=== PATIENT | female | born 1990 | race Caucasian/White ===

== ENCOUNTER 2017-03-06 10:03 | Emergency (ER) | payer MEDICAID ==
[~2017-03-06] VITALS: Ht 157.5 cm; Wt 56.7 kg
[~2017-03-06 10:03] MED LIST: ABILIFY2 MG; AMOXICOT500 MG PO; CITALOPRAM HYDR20 MG PO; FERROUS SULFAT200 M1 PO; FLAGYL500 M1 PO; MAKENA250 MG/ML IM; MOTRIN 400MG.400 MG PO; NICOTINE T21 MG/24 H TD; NITROFURANTOIN100 M2 PO; PNV PRENATAL PL1 TAB PO; PRENATAL PLUS1 TA1 PO
--- OUTSIDE RECORDS SUMMARY | 2017-03-06 10:15 | External Medical Summary Rpt ---
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 SERVICE SERVICE STATUTE MILE OBSERVATI 97237 [facility] CARMEN ON/INPATI 5 PHYSICIAN OSITO ENT S GROUP HOSPITAL CARE 50 [place] [address] JAVIER HERRERA INFUSION 5 [facility] THERAPY/P INC INC ROPHYLAXI S /DX 1ST TO 1 HR EVAL C/V 06209 JAVIER HERRERA AMNIOTIC 5 [facility] FLUID INC INC PROTEIN QUAL EA SPECIMEN 61374 [facility] MORALES NONSTRESS 5 PHYSICIAN OSITO TEST S GROUP 41135 [facility] MORALES NONSTRESS 5 PHYSICIAN OSITO TEST S GROUP THERAPEUT 61679 J[facility]ERR[facility]A IC 5 [facility] PROPHYLAC INC INC TIC/DX INJECTION SUBQ/IM THERAPEUT 46111 J[facility] HERRER[facility] IC 5 [facility] PROPHYLAC INC INC TIC/DX INJECTION SUBQ/IM FTL 44981 JAVIER HERRER[facility] FIBRONECT 5 [facility] IN INC INC CERVICOVA G SECRETION S SEMI-LISET GLUCOSE 84097 JAVIER HERRERA TOLERANCE 5 [facility] TEST GTT INC INC 3 SPECIMENS URNLS DIP 10107 [facility]ERR[facility] 5 [facility] STICK/TAB INC INC LET RGNT NON-AUTO W/O MICRSCP COLLECTIO 58818 JAVIER HERRER[facility] N VENOUS 5 [facility] BLOOD INC INC VENIPUNCT URE GLUCOSE 14999 JAVIER HERRERA TOLERANCE 5 [facility] EA ADDL INC INC BEYOND 3 SPECIMENS GLUCOSE 83149 [facility] POST 5 PHYSICIAN PHYSICIAN GLUCOSE S GROUP S GROUP DOSE US PREG 16737 [facility] MORALES UTERUS 5 PHYSICIAN OSITO AFTER 1ST S GROUP TRIMEST GESTATION DRUG SCR G0434 [facility] MORALES NOT 5 PHYSICIAN OSITO CHROMATOG S GROUP RAPHIC; ANY NUMBER PT ENC CYTP C/V 76372 [facility] AUTO THIN 5 LLC [employer] LYR PREPJ SCR MNL RESCR PHYS US PREG 71857 [facility] UTERUS 5 [facility] REAL TIME HEALTH W/IMAGE PLLC DCMTN TRANSVAG INF AGT G0432 [facility] AB DETECT 5 [facility] EIA TECH [facility]OSP HOSP HIV-1&/HI V-2 SCR URNLS DIP 25612 [facility] 5 [facility] STICK/TAB HOSP HOSP LET RGNT AUTO W/[place] [address] [facility] THYROID 5 [facility] STIMULATI [facility]P HOSP NG HORMONE TSH GLUCOSE 74203 [facility] QUANTITAT 5 [facility] BLOOD [facility] HOSP XCPT REAGENT STRIP GONADOTRO 69959 [facility] PIN 5 [facility] CHORIONIC [facility] HOSP QUANTITAT DEDRICK CREATININ 68010 [facility] E BLOOD 5 [facility] URINE 18132 [facility]TH DEPT VISUAL KATE KATE COLOR CMPRSN METHS IAADIADOO 39716 [facility] TRA 4 HEALTH INFLUENZA [facility]ICAL GROUP SBSQ 23736 [facility] 3 CARE/DAY 35 MINUTES VAGINAL 28566 MODE RICHARDSO DELIVERY 3 N SANDIE N SANDIE ONLY NEURAXIAL 39478 WHITE CHR WHITE CHR LABOR 3 ANALG/ANE S PLND VAGINAL DELIVERY OTHER 7359 [facility] MANUALLY 3 [facility] DELIVERY 77443 MODE MOLINASO NONSTRESS 3 N SANDIE N SANDIE TEST THERAPEUT 88531 JAVIER HERRERA IC 3 [facility] PROPHYLAC INC INC TIC/DX INJECTION SUBQ/IM FTL 28400 JAVIER HERRERA FIBRONECT 3 [facility] IN INC INC CERVICOVA G SECRETION S SEMI-LISET 77169 [facility] HARPEL NONSTRESS 3 ABBY ABBY TEST US PREG 08304 CARMEN MORALES UTERUS 3 OSITO OSITO AFTER 1ST TRIMEST GESTATION IADNA 87707 BENSON BENSON NEISSERIA 3 MIGUEL MIGUEL GONORRHOE AE AMPLIFIED PROBE TQ IADNA 55673 BENSON BENSON CHLAMYDIA 3 MIGUEL MIGUEL TRACHOMAT IS AMPLIFIED PROBE TQ CYTP C/V 85279 BEN[facility] BENSON AUTO THIN 3 MIGUEL MIGUEL LYR PREPJ SCR MNL RESCR PHYS CYTP 22544 [facility] BENSON CERVICAL/ 3 MIGUEL MIGUEL VAGINAL REQ INTERP PHYSICIAN URINE 93046 [facility] CHUNG 2 [facility] HEALTH TEST DEPT DEPT VISUAL COLOR CMPRSN METHS THERAPEUT 12303 AHSAN MINER, IC 0 [facility] PROPHYLAC PSC TIC/DX INJECTION SUBQ/IM INJECTION J1885 A[facility]AN MINER, 0 [facility] KETOROLAC PSC TROMETHAM INE PER 15 MG INJECTION J1885 AHSAN MINER, 0 [facility] KETOROLAC PSC TROMETHAM INE PER 15 MG INJECTION J0696 AHSAN MINER, 0 [facility] CEFTRIAXO PSC NE SODIUM PER 250 MG THERAPEUT 67910 AHSAN MINER, IC 0 [facility] PROPHYLAC PSC TIC/DX INJECTION SUBQ/[place] [address] PATHOLOGY PATHOLOGY SURG 9 & & PATHOLOGY CYTOLOGY CYTOLOGY LAB LAB GROSS&KYRA ROSCOPIC EXAM COLPOSCOP 82201 [facility] MORALES, Y CERVIX 9 [facility] CERVIX CLINIC OF & ENDOCRV [place] CURRETAGE PLLC CYTP 62927 PATHOLOGY PATHOLOGY CERVICAL/ 9 & & VAGINAL CYTOLOGY CYTOLOGY REQ LAB LAB INTERP PHYSICIAN CYTP C/V 44904 PATHOLOGY PATHOLOGY AUTO THIN 9 & & LYR CYTOLOGY CYTOLOGY PREPJ SCR LAB LAB MNL RESCR PHYS IIV3 66738 DHS/CO CHUNG VACCINE 9 [facility] CENTRAL DEPT VIRUS 0.5 BANK ACCT ML DOSAGE IM USE HOSPITAL 60275 FAMILY MULBERRY, DISCHARGE 9 CARE DAGOBERTO T DAY ASSOCIATE MANAGEMEN S T 30 MIN/< SUBQ [address] [facility] 9 CARE DAGOBERTO T CARE PER ASSOCIATE DAY E/M S NORMAL CIRCUMCIS 34563 [facility] 9 CARE DAGOBERTO T W/CLAMP/O ASSOCIATE TH DEV S W/BLOCK VAGINAL 02148 [facility] MORAL[facility], DELIVERY 9 HEALTH BO J ONLY CLINIC OF W/POSTPAR RACHEL [facility] 1ST 57971 [facility] 9 CARE DAGOBERTO Riley GERRY [facility] CENTER S CARE PER DAY NML NB NEURAXIAL 98690 [facility], LABOR 9 ANESTH SIL F ANALG/ANE OF THE S PLND BLUEGRASS VAGINAL DELIVERY OTHER 7279 JAVIER HERRERA VACUUM 9 [facility] EXTRACTIO INC INC N REPAIR OF 7569 JAVIER HERRERA OTHER 9 [facility] CURRENT INC INC OBSTETRIC LACERATIO N 93504 SHAYY CAIN, CONTRACTI 9 VINAYL MD SHAYY Quinonez ON STRESS TEST 55312 WOMEN'S MORALES, NONSTRESS 9 [facility] J TEST CLINIC OF [facility] CUL BACT 54196 COMBINED COMBINED XCPT 9 PHYSICIAN PHYSICIAN URINE S LAB S LAB BLOOD/STO OL AEROBIC ISOL DOPPLER 15981 [facility], VELOCIMET 9 [facility] J RY CLINIC OF UMBILICAL ARTERY [place] [facility] US PREG 32909 [facility]OMEN'S MORALES, UTERUS 9 [facility] J REAL TIME CLINIC OF F/U TRNSABDL [place] PER FETUS [facility] 96539 [facility]OMEN'S MORALES, BIOPHYSIC 9 [facility] AL CLINIC OF PROFILE W/O [place] NON-STRES [facility] S TESTING CYTP 92534 [facility], CERV/VAG 8 [place] INC DAGOBERTO D AUTO THIN LAYER PREP MNL SCREEN CYTP 14925 [facility], CERVICAL/ 8 [place] DAG[place]ERT[place] Minaya VAGINAL REQ INTERP PHYSICIAN IV NFUS 59047 J[facility]IER HERRERA THER 8 [facility] PROPH/DX INC INC EA HR BLOOD 00221 J[facility] HERRER[facility] TYPING 8 [facility] SEROLOGIC INC INC RH ([place]) [place] [address] WOMEN'S AMAYA, 8 [facility] UTERUS 14 CLINIC OF WK TRANSABDL [place] [facility] GESTAT ANTIBODY 14988 JAVIER HERRERA SCREEN 8 [facility] RBC EACH INC INC SERUM TECHNIQUE BLOOD 57532 JAVIER HERRERA COUNT 8 [facility] COMPLETE INC INC AUTO&AUTO DIFRNTL WBC BLOOD 02526 J[facility]IER HERRERA TYPING 8 [facility] SEROLOGIC INC INC ABO [place] MISSED 70077 [facility]S AMAYA, 8 [facility] [place] [facility] [place] [address] PATHOLOGY PATHOLOGY SURG 8 & & PATHOLOGY CYTOLOGY CYTOLOGY LAB LAB GROSS&KYRA ROSCOPIC EXAM DILATION& 6902 JAVIER HERRERA CURETTAGE 8 [facility] INC INC FOLLOWING DELIVERY/ ANESTHESI 69493 [facility] Victor Hugo NORIEGA ANESTH SIL ALBERT OF THE E/MISSED [facility] [place] [address]34 JAVIER HERRERA THER 8 [facility] HOSP PROPH/DX INC INC 1ST >1 HR US PREG 79148 [facility]OMEN'S MORALES, UTERUS 8 [facility] REAL TIME CLINIC OF W/IMAGE DCMTN [place] TRANSVAG [facility] US PREG 62631 WOMEN'S MORALES, UTERUS 8 [facility] REAL TIME CLINIC OF W/IMAGE DCMTN [place] TRANSVAG [facility] MOLEC 26588 [facility], SEP&ID HI 8 [place] [facility] Rei RESOLU TQ EACH NUCLEIC ACID PREP IADNA 80529 [facility], NEISSERIA 8 [place] [facility] Rei GONORRHOE AE AMPLIFIED PROBE TQ IADNA 73935 [facility], CHLAMYDIA 8 [place] [facility] D[facility] Rei TRACHOMAT IS AMPLIFIED PROBE TQ MOLECULAR 22050 [facility], 8 [place] D[place] Minaya DIAGNOSTI CS INTERPRET ATION & REPORT MUTATION 94155 [facility], ID 8 [place] D[place] Minaya ENZYMATIC LIG/PRIME R XTN 1 SGM EA CYTP 73118 [facility], CERV/VAG 8 [place] DAGOBERT[place] D AUTO THIN LAYER PREP MNL SCREEN CYTP 16258 [facility], CERVICAL/ 8 [place] DAG[place]ERT[place] D VAGINAL REQ INTERP PHYSICIAN ECG 71329 CARDIOLOG ALEMAN, ROUTINE 8 Y LEOBARDO A ECG ASSOCIATE W/LEAST S OF 12 [facility] I&R ONLY Encounters Encounter Start End Date Code Location Performer Type Date EMERGENCY 51152 [facility] 7 7 [facility] T VISIT LOW/MODER SEVERITY HOSPITAL JAVIER - 7 7 [facility] OFF[facility] 24119 [facility] LEYDA OUTPATIEN 6 6 PHYSICIAN T VISIT S GROUP 15 MINUTES OFFICE 95394 [facility] MORALES OUTPATIEN 6 6 PHYSICIAN OSITO T VISIT S GROUP 15 MINUTES OFFICE 51912 [facility] OUTPATIEN 6 6 HEALTH HEN T VISIT MEDICAL 15 GROUP MINUTES HOSPITAL JAVIER - 6 6 [facility] - 6 6 [facility] OFF[facility] 79482 [facility] MORALES OUTPATIEN 6 6 PHYSICIAN OSITO T VISIT S GROUP 15 MINUTES OFFICE 74549 [facility] HARPEL OUTPATIEN 6 6 PHYSICIAN ABBY T VISIT S GROUP 25 MINUTES OFFICE 15251 [facility] MORALES OUTPATIEN 6 6 PHYSICIAN OSITO T VISIT S GROUP 15 MINUTES OFFICE 27859 [facility] MORALES OUTPATIEN 6 6 PHYSICIAN OSITO T VISIT S GROUP 15 MINUTES OFFICE 44763 [facility] MORALES OUTPATIEN 6 6 PHYSICIAN OSITO T VISIT S GROUP 15 MINUTES HOSPITAL JAVIER - 6 6 [facility] 6 MEDICAL ARMAND T VISIT SERV 15 FOUNDATIO MINUTES N OFFICE 80523 UNIVERSIT OUTPATIEN 6 6 Y T VISIT 5 HOSPITAL MINUTES [facility] JAVIER - 6 6 [facility] OUTPATIEN [facility] T OFFICE 21337 [facility] MORALES OUTPATIEN 6 6 PHYSICIAN OSITO T VISIT S GROUP 15 MINUTES HOSPITAL JAVIER - 6 6 [facility]PATIEN [facility] T [facility] JAVIER - 6 6 [facility] OUTPATIEN [facility] T OFFICE 61049 [facility] MORALES OUTPATIEN 6 6 PHYSICIAN OSITO T VISIT S GROUP 15 MINUTES OFFICE 65698 [facility] MORALES OUTPATIEN 6 6 PHYSICIAN OSITO T VISIT S GROUP 15 MINUTES OFFICE 81802 [facility] MORALES OUTPATIEN 6 6 PHYSICIAN OSITO T VISIT S GROUP 15 MINUTES OFFICE 63271 [facility] MORALES OUTPATIEN 6 6 PHYSICIAN T VISIT S GROUP 15 MINUTES OFFICE 97998 [facility] MORALES OUTPATIEN 6 6 PHYSICIAN T VISIT S GROUP 15 MINUTES OFFICE 55698 [facility] MORALES OUTPATIEN 6 6 PHYSICIAN T VISIT S GROUP 15 MINUTES HOSPITAL JAVIER - 6 6 [facility]EN [facility] T OFFICE 62058 [facility] MORALES OUTPATIEN 6 6 PHYSICIAN T VISIT S GROUP 15 MINUTES OFFICE 42385 [facility] MORALES OUTPATIEN 6 6 PHYSICIAN T VISIT S GROUP 25 MINUTES HOSPITAL JAVIER - 6 6 [facility] OUTPATIEN INC T EMERGENCY 98036 JAVIER 6 [address] [facility] INC T VISIT LOW/MODER SEVERITY OFFICE 37949 JAVIER SHOSHANA OUTPATIEN 5 5 [facility] T VISIT HOSPITAL 15 MINUTES OFFICE 95418 JAVIER SHOSHANA OUTPATIEN 5 5 [facility] T VISIT [facility] 15 MINUTES HOSPITAL UNIVERSIT - 5 5 [facility] JAVIER - 5 5 [facility] OUTPATIEN INC [facility] JAVIER - 5 5 [facility] OUTPATIEN INC [facility] JAVIER - 5 5 [facility] OUTPATIEN INC [facility] JAVIER - 5 5 [facility] OUTPATIEN [facility] OFFICE 77016 [facility] MORALES OUTPATIEN 5 5 PHYSICIAN OSITO T VISIT S GROUP 15 MINUTES OFFICE 67258 [facility] MORALES OUTPATIEN 5 5 PHYSICIAN OSITO T VISIT S GROUP 15 MINUTES OFFICE 60277 [facility] MORALES OUTPATIEN 5 5 PHYSICIAN OSITO T VISIT S GROUP 25 MINUTES OFFICE 92829 [facility] [facility] OUTPATIEN 5 5 [facility] T VISIT HEALTH 15 PLLC MINUTES [facility] CENTRAL - 5 5 [facility] OUT[facility]OSP T OFFICE 58655 [facility] OUTPATIEN 5 5 [facility] T NEW 30 HEALTH MINUTES PLLC OFFICE 03711 [facility] DEPT HLTH DEPT 10 KATE KATE MINUTES OFFICE 00995 [facility] TRA OUTPATIEN 4 4 HEALTH T VISIT MEDICAL 15 GROUP MINUTES OFFICE 71358 [facility] RAMIREZ OUTPATIEN 4 4 HEALTH DON T NEW 30 MEDICAL MINUTES GROUP OFFICE 77378 [facility] LEYDA OUTPATIEN 4 4 PHYSICIAN KYRA T VISIT S GROUP 15 MINUTES [facility] HINDU - 3 3 [facility] JAVIER - 3 3 [facility] OUTPATIEN INC T HOSPITAL JAVIER - 3 3 [facility] OUTPATIEN INC T OFFICE 75767 ANT CAIN OUTPATIEN 3 3 ABBY ABBY T VISIT 15 MINUTES OFFICE 85113 [facility] HAINESS OUTPATIEN 2 2 [facility] T NEW 20 DEPT DEPT MINUTES OFFICE 59980 AHSAN MINER OUTPATIEN 0 0 CLIN[facility] T VISIT PSC 15 MINUTES EMERGENCY 76877 CHUNG 0 0 [facility] T VISIT LOW/MODER SEVERITY HOSPITAL CHUNG - 0 0 [facility] T EMERGENCY 94713 CHUNG CELIA, 0 0 [facility] T VISIT LIMITED/M INOR PROB OFFICE 79660 AHSAN MINER OUTPATIEN 0 0 CLINIC [facility] T VISIT PSC 15 MINUTES OFFICE 52847 [facility], OUTPATIEN 0 0 HEALTH BO J T VISIT CLINIC OF 15 MINUTES [facility] OFFICE 37036 [facility]OMEN'S MORALES, OUTPATIEN 9 9 HEALTH BO J T VISIT CLINIC OF 25 MINUTES [facility] OFFICE 30866 WOMEN'S MORALES, OUTPATIEN 9 9 HEALTH BO J T VISIT CLINIC OF 15 MINUTES [facility] JAVIER - 9 9 [facility] INPATIENT INC OFFICE 44765 SHAYY CAIN OUTPATIEN 9 9 ATN Quinonez T VISIT 15 MINUTES OFFICE 56081 [facility]AL[facility], OUTPATIEN 9 9 HEALTH BO J T VISIT CLINIC OF 15 MINUTES [facility] OFFICE 22516 WOMEN'S MORALES, OUTPATIEN 9 9 HEALTH BO J T VISIT CLINIC OF 15 MINUTES [facility] OFFICE 89235 WOMEN'S CARMEN OUTPATIEN [address] [facility] BO [facility] VISIT CLINIC OF 15 MINUTES [facility] OFFICE 11534 WOMEN'S AMAYA, OUTPATIEN 8 8 [facility] VISIT CLINIC OF 15 MINUTES [facility] OFFICE 00881 [facility] AMAYA OUTPATIEN 8 8 [facility] VISIT CLINIC OF 15 MINUTES [facility] JAVIER - 8 8 [facility] OUTPATIEN [facility] OFFICE 55111 HERBERT NICHOLS 8 8 CLINIC MIC[facility] T VISIT PSC 15 MINUTES OFFICE 09061 HERBERT NICHOLS 8 8 CLINIC MIC[facility] T VISIT PSC 15 MINUTES OFFICE 07141 HERBERT NICHOLS 8 8 CLINIC [facility]HA[facility] T VISIT PSC 15 MINUTES
--- OUTSIDE RECORDS SUMMARY | 2017-03-06 10:15 | External Medical Summary Rpt ---
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 MIGUEL MIGUEL LYR PREPJ SCR MNL RESCR PHYS CYTP 33517 BENSON BENSON CERVICAL/ 3 MIGUEL MIGUEL VAGINAL REQ INTERP PHYSICIAN URINE 56585 CHUNG CHUNG 2 [facility] TEST DEPT DEPT VISUAL COLOR CMPRSN METHS THERAPEUT 04425 AHSAN MINER, IC 0 [facility] PROPHYLAC PSC TIC/DX INJECTION SUBQ/IM INJECTION J1885 AHSAN MINER, 0 [facility] KETOROLAC PSC TROMETHAM INE PER 15 MG INJECTION J1885 AHSAN MINER, 0 [facility] KETOROLAC PSC TROMETHAM INE PER 15 MG INJECTION J0696 AHSAN MINER, 0 [facility] CEFTRIAXO PSC NE SODIUM PER 250 MG THERAPEUT 25292 AHSAN MINER, IC 0 [facility] PROPHYLAC PSC TIC/DX INJECTION SUBQ/[place] [address] PATHOLOGY PATHOLOGY SURG 9 & & PATHOLOGY CYTOLOGY CYTOLOGY LAB LAB GROSS&KYRA ROSCOPIC EXAM COLPOSCOP 26213 [facility]OMEN'S MORAELS, Y CERVIX 9 [facility] J BX CERVIX CLINIC OF & ENDOCRV [place] [facility] CYTP 50778 PATHOLOGY PATHOLOGY CERVICAL/ 9 & & VAGINAL CYTOLOGY CYTOLOGY REQ LAB LAB INTERP PHYSICIAN CYTP C/V 90699 PATHOLOGY PATHOLOGY AUTO THIN 9 & & LYR CYTOLOGY CYTOLOGY PREPJ SCR LAB LAB MNL RESCR PHYS IIV3 46544 DHS/CO CHUNG VACCINE 9 [facility] CENTRAL DEPT VIRUS 0.5 BANK ACCT ML DOSAGE IM USE HOSPITAL 14663 FAMILY MULBERRY, DISCHARGE 9 CARE DAGOBERTO T DAY ASSOCIATE MANAGEMEN S T 30 MIN/< SUBQ 31509 [facility] 9 CARE DAGOBERTO T CARE PER ASSOCIATE DAY E/M S NORMAL CIRCUMCIS 38778 [facility] 9 CARE DAGOBERTO T W/CLAMP/O ASSOCIATE TH DEV S W/BLOCK VAGINAL 41070 [facility] MORALES, DELIVERY 9 HEALTH BO J ONLY CLINIC OF W/POSTPAR [facility]HEL [facility] 1ST 32766 [facility] 9 CARE DAGOBERTO Riley [facility] S CARE PER DAY NML NB NEURAXIAL 81551 [facility], LABOR 9 ANESTH SIL F ANALG/ANE OF THE S PLND BLUEGRASS VAGINAL DELIVERY OTHER 7279 JAVIER HERRERA VACUUM 9 [facility] EXTRACTIO INC INC N REPAIR OF 7569 JAVIER HERRERA OTHER 9 [facility] CURRENT INC INC OBSTETRIC LACERATIO N 62106 SHAYY CAIN, CONTRACTI 9 VINAYL MD SHAYY Quinonez ON STRESS TEST 74366 WOMEN'S MORALES, NONSTRESS 9 [facility] J TEST [facility] CUL BACT 07342 COMBINED COMBINED XCPT 9 PHYSICIAN PHYSICIAN URINE S LAB S LAB BLOOD/STO OL AEROBIC ISOL DOPPLER 39130 [facility] M[facility]AL[facility], VELOCIMET 9 [facility] J RY CLINIC OF UMBILICAL ARTERY [place] [facility] US PREG 82783 [facility]OMEN'S MORALES, UTERUS 9 [facility] J REAL TIME CLINIC OF F/U TRNSABDL [place] PER FETUS [facility] 17686 WOMEN'S MORALES, BIOPHYSIC 9 [facility] J AL CLINIC OF PROFILE W/O [place] NON-STRES [facility] S TESTING CYTP 97295 [facility], CERV/VAG 8 [place] INC DAGOBERTO D AUTO THIN LAYER PREP MNL SCREEN CYTP 72915 [facility], CERVICAL/ 8 [place] INC DAGOBERTO Minaya VAGINAL REQ INTERP PHYSICIAN IV NFUS 94252 J[facility]IER HERRERA THER 8 [facility] PROPH/DX INC INC EA HR BLOOD 16290 J[facility]IER HERRERA TYPING 8 [facility] SEROLOGIC INC [place] RH ([place]) [place] [address] [facility]OM[facility]'S AMAYA, 8 [facility] UTERUS 14 CLINIC OF WK TRANSABDL [place] [facility] GESTAT ANTIBODY 77105 JAVIER HERRERA SCREEN 8 [facility] RBC EACH INC INC SERUM TECHNIQUE BLOOD 28451 JAVIER HERRERA COUNT 8 [facility] COMPLETE INC INC AUTO&AUTO DIFRNTL WBC BLOOD 28689 JAVIER HERRERA TYPING 8 [facility] SEROLOGIC INC INC ABO [place] MISSED 99545 [facility] AMAYA, 8 [facility] [place] [address] PATHOLOGY PATHOLOGY SURG 8 & & PATHOLOGY CYTOLOGY CYTOLOGY LAB LAB GROSS&KYRA ROSCOPIC EXAM DILATION& 6902 JAVIER HERRERA CURETTAGE 8 [facility] H[facility] INC INC FOLLOWING DELIVERY/ ANESTHESI 89716 [facility] Victor Hugo NORIEGA ANESTH SIL ALBERT OF THE E/MISSED [facility] [place] [address] JAVIER HERRERA THER 8 MEM [facility] HOSP PROPH/DX INC INC 1ST >1 HR [place] PREG 50744 WOMEN'S MORALES, UTERUS 8 [facility] OF W/IMAGE DCMTN [place] TRANSVAG [facility] US PREG 72966 WOMEN'S MORALES, UTERUS 8 [facility] OF W/IMAGE DCMTN [place] TRANSVAG [facility] MOLEC 60484 [facility], SEP&ID HI 8 [place] D[facility] Rei RESOLU TQ EACH NUCLEIC ACID PREP IADNA 71046 [facility], NEISSERIA 8 [place] [facility] D[facility] Rei GONORRHOE AE AMPLIFIED PROBE TQ IADNA 71314 [facility], CHLAMYDIA 8 [place] DAG[facility] Rei TRACHOMAT IS AMPLIFIED PROBE TQ MOLECULAR 34484 [facility], 8 [place] DAG[place] Minaya DIAGNOSTI CS INTERPRET ATION & REPORT MUTATION 58714 [facility], ID 8 [place] [facility] DAG[facility]ERT[place] Minaya ENZYMATIC LIG/PRIME R XTN 1 SGM EA CYTP 04160 [facility], CERV/VAG 8 [place] INC DAGOBERT[place] D AUTO THIN LAYER PREP MNL SCREEN CYTP 21073 [facility], CERVICAL/ 8 [place] INC DAGOBERT[place] D VAGINAL REQ INTERP PHYSICIAN ECG 12926 CARDIOLOG ALEMAN, ROUTINE 8 Y LEOBARDO A ECG ASSOCIATE W/LEAST S OF 12 [facility] I&R ONLY Encounters Encounter Start End Date Code Location Performer Type Date EMERGENCY 42035 J[facility]IER 7 7 [facility] T VISIT LOW/MODER SEVERITY HOSPITAL JAVIER - 7 7 [facility] 09738 [facility] LEYDA OUTPATIEN 6 6 PHYSICIAN T VISIT S GROUP 15 MINUTES OFFICE 45662 [facility] MORALES OUTPATIEN 6 6 PHYSICIAN OSITO T VISIT S GROUP 15 MINUTES OFFICE 96198 [facility] OUTPATIEN 6 6 HEALTH HEN T VISIT MEDICAL 15 GROUP MINUTES HOSPITAL JAVIER - 6 6 [facility]PATIENT [facility] - 6 6 [facility] 53941 [facility] MORALES OUTPATIEN 6 6 PHYSICIAN OSITO T VISIT S GROUP 15 MINUTES OFFICE 55209 [facility] HARPEL OUTPATIEN 6 6 PHYSICIAN ABBY T VISIT S GROUP 25 MINUTES OFFICE 19636 [facility] MORALES OUTPATIEN 6 6 PHYSICIAN OSITO T VISIT S GROUP 15 MINUTES OFFICE 87732 [facility] MORALES OUTPATIEN 6 6 PHYSICIAN OSITO T VISIT S GROUP 15 MINUTES OFFICE 59186 [facility] MORALES OUTPATIEN 6 6 PHYSICIAN OSITO T VISIT S GROUP 15 MINUTES HOSPITAL JAVIER - 6 6 [facility] T [facility] 37360 [facility] OUTPATI[facility] 6 6 MEDICAL ARMAND T VISIT SERV 15 FOUNDATIO MINUTES N OFFICE 51285 UNIVERSIT OUTPATIEN 6 6 Y T VISIT 5 HOSPITAL MINUTES [facility] JAVIER - 6 6 [facility] OUTPATIEN [facility] T OFFICE 48416 [facility] MORALES OUTPATIEN 6 6 PHYSICIAN OSITO T VISIT S GROUP 15 MINUTES HOSPITAL JAVIER - 6 6 [facility] OUTPATIEN [facility] T [facility] JAVIER - 6 6 [facility] OUTPATIEN [facility] T OFFICE 75771 [facility] MORALES OUTPATIEN 6 6 PHYSICIAN OSITO T VISIT S GROUP 15 MINUTES OFFICE 84891 [facility] MORALES OUTPATIEN 6 6 PHYSICIAN OSITO T VISIT S GROUP 15 MINUTES OFFICE 15861 [facility] MORALES OUTPATIEN 6 6 PHYSICIAN OSITO T VISIT S GROUP 15 MINUTES OFFICE 20350 [facility] MORALES OUTPATIEN 6 6 PHYSICIAN T VISIT S GROUP 15 MINUTES OFFICE 19778 [facility] MORALES OUTPATIEN 6 6 PHYSICIAN T VISIT S GROUP 15 MINUTES OFFICE 50352 [facility] MORALES OUTPATIEN 6 6 PHYSICIAN T VISIT S GROUP 15 MINUTES HOSPITAL JAVIER - 6 6 [facility] OUTPATIEN [facility] T OFFICE 81735 [facility] MORLAES OUTPATIEN 6 6 PHYSICIAN T VISIT S GROUP 15 MINUTES OFFICE 28372 [facility] MORALES OUTPATIEN 6 6 PHYSICIAN T VISIT S GROUP 25 MINUTES HOSPITAL JAVIER - 6 6 [facility] OUTPATIEN INC T EMERGENCY 21643 JAVIER 6 [address] [facility] INC T VISIT LOW/MODER SEVERITY OFFICE 95740 JAVIER SHOSHANA OUTPATIEN 5 5 [facility] T VISIT HOSPITAL 15 MINUTES OFFICE 42712 JAVIER SHOSHANA OUTPATIEN 5 5 [facility] T VISIT [facility] 15 MINUTES HOSPITAL UNIVERSIT - 5 5 [facility] JAVIER - 5 5 [facility]PATIEN INC [facility] JAVIER - 5 5 [facility] OUTPATIEN INC [facility] JAVIER - 5 5 [facility] OUTPATIEN INC [facility] JAVIER - 5 5 [facility] OUTPATIEN [facility] OFFICE 90864 [facility] MORALES OUTPATIEN 5 5 PHYSICIAN OSITO T VISIT S GROUP 15 MINUTES OFFICE 56005 [facility] MORALES OUTPATIEN 5 5 PHYSICIAN OSITO T VISIT S GROUP 15 MINUTES OFFICE 94974 [facility] MORALES OUTPATIEN 5 5 PHYSICIAN OSITO T VISIT S GROUP 25 MINUTES OFFICE 97631 CLAVERACK SCHADLER OUTPATIEN 5 5 [facility] T VISIT HEALTH 15 PLLC MINUTES [facility] CENTRAL - 5 5 [facility] OUT[facility]IEN HOSP T OFFICE 78872 CLAVERACK NÉSTORDLER OUTPATIEN 5 5 [facility] T NEW 30 HEALTH MINUTES PLLC OFFICE 96290 [facility] DEPT [facility]TH DEPT 10 KATE KATE MINUTES OFFICE 82125 [facility] TRA OUTPATIEN 4 4 HEALTH T VISIT MEDICAL 15 GROUP MINUTES OFFICE 23742 [facility] RAMIREZ OUTPATIEN 4 4 HEALTH DON T NEW 30 MEDICAL MINUTES GROUP OFFICE 50840 [facility] LEYDA OUTPATIEN 4 4 PHYSICIAN KYRA T VISIT S GROUP 15 MINUTES [facility] PROTESTANT - [address] [facility] JAVIER - 3 3 [facility] OUTPATIEN INC T HOSPITAL JAVIER - 3 3 [facility] OUTPATIEN INC T OFFICE 60420 ANT CAIN OUTPATIEN 3 3 ABBY ABBY T VISIT 15 MINUTES OFFICE 23779 CHUN[facility] HAINESS OUTPATIEN 2 2 [facility] NEW 20 DEPT DEPT MINUTES OFFICE 74820 AHSAN MINER OUTPATIEN 0 0 CLINIC [facility] T VISIT PSC 15 MINUTES EMERGENCY 51321 CHUNG 0 0 [facility] T VISIT LOW/MODER SEVERITY HOSPITAL CHUNG - 0 0 [facility] T EMERGENCY 69437 CHUNG CELIA, 0 0 [facility] T VISIT LIMITED/M INOR PROB OFFICE 44522 AHSAN MINER OUTPATIEN 0 0 CLINIC [facility] T VISIT PSC 15 MINUTES OFFICE 40187 [facility], OUTPATIEN 0 0 HEALTH BO J T VISIT CLINIC OF 15 MINUTES [facility] EMERGENCY DEPARTMENT OFFICE 30165 [facility] M[facility]AL[facility], OUTPATIEN 9 9 HEALTH BO J T VISIT CLINIC OF 25 MINUTES [facility] EMERGENCY DEPARTMENT OFFICE 44680 [facility] MORALES, OUTPATIEN 9 9 HEALTH BO J T VISIT CLINIC OF 15 MINUTES [facility] EMERGENCY DEPARTMENT HOSPITAL JAVIER - 9 9 [facility] INPATIENT INC OFFICE 79345 SHAYY CAIN OUTPATIEN 9 9 ANT Quinonez T VISIT 15 MINUTES OFFICE 81984 [facility], OUTPATIEN 9 9 HEALTH BO J T VISIT CLINIC OF 15 MINUTES [facility] EMERGENCY DEPARTMENT OFFICE 12139 [facility] MORAL[facility], OUTPATIEN 9 9 HEALTH BO J T VISIT CLINIC OF 15 MINUTES [facility] EMERGENCY DEPARTMENT OFFICE 52786 W[facility]'S CARMEN OUTPATIEN 9 9 [facility] BO [facility] VISIT CLINIC OF 15 MINUTES [facility] EMERGENCY DEPARTMENT OFFICE 88200 [facility] AMAYA, OUTPATIEN 8 8 [facility] VISIT CLINIC OF 15 MINUTES [facility] EMERGENCY DEPARTMENT OFFICE 44770 [facility] AMAYA OUTPATIEN 8 8 [facility] VISIT CLINIC OF 15 MINUTES [facility] JAVIER - 8 8 [facility] OUTPATIEN [facility] OFFICE 41280 HERBERT NICHOLS 8 8 CLINIC MICHAEL T VISIT PSC 15 MINUTES OFFICE 46188 HERBERT NICHOLS 8 8 CLINIC MICHAEL T VISIT PSC 15 MINUTES OFFICE 54399 HERBERT NICHOLS 8 8 CLINIC MICHAEL T VISIT PSC 15 MINUTES
--- OUTSIDE RECORDS SUMMARY | 2017-03-06 10:21 | External Medical Summary Rpt ---
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 RESCR PHYS US PREG 56493 [facility] SCHADLER UTERUS 5 [facility] W/IMAGE PLLC DCMTN TRANSVAG URNLS DIP 82745 [facility] 5 [facility] STICK/TAB HOSP HOSP LET RGNT AUTO W/O MICROSCOP Y INF AGT G0432 [facility] AB DETECT 5 [facility] EIA TECH HOSP HOSP HIV-1&/HI V-2 SCR CREATININ 99635 [facility] E BLOOD 5 [facility] HOSP GONADOTRO 57230 [facility] PIN 5 [facility] [place] [address] [facility] THYROID 5 [facility] STIMULATI HOSP HOSP NG HORMONE TSH GLUCOSE 71966 [facility] QUANTITAT 5 [facility]RICK BLOOD HOSP HOSP XCPT REAGENT STRIP URINE 40453 [facility] DEPT HLTH DEPT VISUAL KATE KATE COLOR CMPRSN METHS IAADIADOO 02464 [facility] 4 HEALTH INFLUENZA MEDICAL GROUP SBSQ 56499 [facility] 3 CARE/DAY 35 MINUTES NEURAXIAL 08330 WHITE CHR WHITE CHR LABOR 3 ANALG/ANE S PLND VAGINAL DELIVERY VAGINAL 17057 MODE RICHARDSO DELIVERY 3 N SANDIE N SANDIE ONLY OTHER 7359 [facility] B[facility] MANUALLY 3 [facility] DELIVERY 01876 MODE MOLINASO NONSTRESS 3 N SANDIE N SANDIE TEST THERAPEUT 61818 JAVIER HERRERA IC 3 [facility] PROPHYLAC INC INC TIC/DX INJECTION SUBQ/IM FTL 79742 JAVIER HERRERA FIBRONECT 3 [facility] IN INC INC CERVICOVA G SECRETION S SEMI-LISET 52893 HARPEL HARPEL NONSTRESS 3 ABBY [place] PREG 37630 CARMEN MORALES UTERUS 3 OSITO OSITO AFTER 1ST TRIMEST / GESTATION IADNA 48854 BENSON BENSON CHLAMYDIA 3 MIGUEL MIGUEL TRACHOMAT IS AMPLIFIED PROBE TQ IADNA 64375 BENSON BENSON NEISSERIA 3 MIGUEL MIGUEL GONORRHOE AE AMPLIFIED PROBE TQ CYTP 45103 KELLEY AGUILARNO CERVICAL/ 3 MIGUEL MIGUEL VAGINAL REQ INTERP PHYSICIAN CYTP C/V 25709 KELLEY AGUILARNO AUTO THIN 3 MIGUEL MIGUEL LYR PREPJ SCR MNL RESCR PHYS URINE 77127 CH[facility]G WILKES 2 [facility] HEALTH TEST DEPT DEPT VISUAL COLOR CMPRSN METHS THERAPEUT 11217 AHSAN LOVEN, IC 0 [facility] PROPHYLAC PSC TIC/DX INJECTION SUBQ/IM INJECTION J1885 AHSAN TAMAREN, 0 [facility] KETOROLAC PSC TROMETHAM INE PER 15 MG INJECTION J0696 AHSAN TAMAREN, 0 [facility] CEFTRIAXO PSC NE SODIUM PER 250 MG THERAPEUT 27765 AHSAN HECTORAREN, IC 0 [facility] PROPHYLAC PSC TIC/DX INJECTION SUBQ/IM INJECTION J1885 AHSAN LOVEN, 0 CLIN[facility] KETOROLAC PSC TROMETHAM INE PER 15 MG COLPOSCOP 09493 [facility]S MORALES, Y CERVIX 9 [facility] CERVIX CLINIC OF & ENDOCRV YOSELIN YUSUF [facility] [place] [address] PATHOLOGY PATHOLOGY SURG 9 & & PATHOLOGY CYTOLOGY CYTOLOGY LAB LAB GROSS&KYRA ROSCOPIC EXAM CYTP C/V 11470 PATHOLOGY PATHOLOGY AUTO THIN 9 & & LYR CYTOLOGY CYTOLOGY PREPJ SCR LAB LAB MNL RESCR PHYS CYTP 91546 PATHOLOGY PATHOLOGY CERVICAL/ 9 & & VAGINAL CYTOLOGY CYTOLOGY REQ LAB LAB INTERP PHYSICIAN IIV3 75201 DHS/CO CHUNG VACCINE 9 [facility] CENTRAL DEPT VIRUS 0.5 BANK ACCT ML DOSAGE IM USE HOSPITAL 58298 [facility] 9 CARE DAGOBERTO T DAY ASSOCIATE MANAGEMEN S T 30 MIN/< SUBQ 35952 [facility] [place] 9 CARE DAGOBERTO T CARE PER ASSOCIATE DAY E/M S NORMAL CIRCUMCIS 03819 [facility] 9 CARE DAGOBERTO T W/CLAMP/O ASSOCIATE TH DEV S W/BLOCK 1ST 88020 [facility], HOSP/CORY 9 CARE DAGOBERTO [facility] S CARE PER DAY NML NB VAGINAL 85671 [facility] M[facility]AL[facility], DELIVERY 9 [facility] ONLY CLINIC OF W/POSTPAR RACHEL CARE [place] [facility] NEURAXIAL 32305 [facility] [place], LABOR 9 ANESTH SIL F ANALG/ANE OF THE S PLND [place] VAGINAL DELIVERY REPAIR OF 7569 JAVIER HERRERA OTHER 9 [facility] CURRENT INC INC OBSTETRIC LACERATIO N OTHER 7279 JAVIER HERRERA VACUUM 9 [facility] MEM HOSP EXTRACTIO INC INC N 54260 NAM PISANOI 9 ANT Quinonez ON STRESS TEST 57642 WOMEN'S MORALES, NONSTRESS 9 [facility] TEST [facility] CUL BACT 21384 COMBINED COMBINED XCPT 9 PHYSICIAN PHYSICIAN URINE S LAB S LAB BLOOD/STO OL AEROBIC ISOL US PREG 16376 [facility] MORAL[facility], UTERUS 9 [facility] REAL TIME CLINIC OF F/U TRNSABDL [place] PER FETUS [facility] 47568 [facility]'S [place]AL[facility], BIOPHYSIC 9 [facility] AL CLINIC OF PROFILE W/O [place] NON-STRES [facility] S TESTING DOPPLER 53553 [facility], VELOCIMET 9 [facility] RY CLINIC OF UMBILICAL ARTERY [place] [facility] CYTP 98702 [facility] [place], CERVICAL/ 8 [place] INC DAGOBERTO D VAGINAL REQ INTERP PHYSICIAN CYTP 24708 [facility] [place], CERV/VAG 8 [place] INC DAGOBERT[place] D AUTO THIN LAYER PREP MNL SCREEN BLOOD 36709 JAVIER HERRERA TYPING 8 [facility] SEROLOGIC INC INC ABO BLOOD 30153 JAVIER HERRERA COUNT 8 [facility] COMPLETE INC INC AUTO&[place] [address] [facility]EN'S AMAYA, 8 [facility] UTERUS 14 CLINIC OF WK TRANSABDL [place] [facility] GESTAT ANTIBODY 43944 JAVIER HERRERA SCREEN 8 [facility] RBC EACH INC INC SERUM TECHNIQUE [place] MISSED 70120 [facility] AMAYA, 8 [facility] FIRST [facility] OF [place] BLOOD 64775 JAVIER HERRERA TYPING 8 [facility] SEROLOGIC INC INC RH (D) IV NFUS 03474 JAVIER HERRERA THER 8 [facility] PROPH/[place] [address] PATHOLOGY PATHOLOGY SURG 8 & & PATHOLOGY CYTOLOGY CYTOLOGY LAB LAB GROSS&KYRA ROSCOPIC EXAM ANESTHESI 33983 [facility] Victor Hugo ANESTH SIL Gotti INCOMPLET OF THE E/MISSED [place] DILATION& 6902 JAVIER HERRERA CURETTAGE 8 [facility] INC INC FOLLOWING DELIVERY/ IV NFS 08956 JAVIER HERRERA THER 8 [facility] PROPH/DX INC INC 1ST >1 HR US PREG 49319 [facility]'S MORALES, UTERUS 8 [facility] REAL TIME CLINIC OF W/IMAGE DCMTN [facility] TRANSVAG [facility] US PREG 64794 WOMEN'S MORALES, UTERUS 8 [facility] REAL TIME CLINIC OF W/IMAGE DCMTN [facility] TRAN[facility] MOLECULAR 92738 [facility] [place], 8 [place] D[place] Rei DIAGNOSTI CS INTERPRET ATION & REPORT MUTATION 86637 [facility] [place], ID 8 [place] D[place] Minaya ENZYMATIC LIG/PRIME R XTN 1 SGM EA MOLEC 98267 [facility] [place], SEP&ID HI 8 [place] Rei RESOLU TQ EACH NUCLEIC ACID PREP IADNA 83164 [facility] [place], CHLAMYDIA 8 [place] D[place] Rei TRACHOMAT IS AMPLIFIED PROBE TQ IADNA 18624 [facility] [place], NEISSERIA 8 [place] DAG[place] Rei GONORRHOE AE AMPLIFIED PROBE TQ CYTP 52229 [facility] [place], CERV/VAG 8 [place] DAG[place] Rei AUTO THIN LAYER PREP MNL SCREEN CYTP 31682 [facility] [place], CERVICAL/ 8 [place] DAGOBERT[place] Rei VAGINAL REQ INTERP PHYSICIAN ECG 55179 CARDIOLOG ALEMAN, ROUTINE 8 Y LEOBARDO A ECG ASSOCIATE W/LEAST S OF 12 [facility] I&R ONLY Encounters Encounter Start End Date Code Location Performer Type Date [facility] JAVIER - 7 7 [facility] OUTPATIEN INC T EMERGENCY 72270 JAVIER 7 7 [facility] INC T VISIT LOW/MODER SEVERITY OFFICE 41231 [facility] LEYDA OUTPATIEN 6 6 PHYSICIAN T VISIT S GROUP 15 MINUTES OFFICE 50612 [facility] MORALES OUTPATIEN 6 6 PHYSICIAN OSITO T VISIT S GROUP 15 MINUTES OFFICE 15637 [facility] OUTPATIEN 6 6 HEALTH HEN T VISIT MEDICAL 15 GROUP MINUTES HOSPITAL J[facility]IER - 6 6 [facility] - 6 6 [facility] OUTPATIEN [facility] T OFFICE 35296 [facility] MORALES OUTPATIEN 6 6 PHYSICIAN OSITO T VISIT S GROUP 15 MINUTES OFFICE 85451 [facility] HARPEL OUTPATIEN 6 6 PHYSICIAN ABBY T VISIT S GROUP 25 MINUTES OFFICE 25876 [facility] MORALES OUTPATIEN 6 6 PHYSICIAN OSITO T VISIT S GROUP 15 MINUTES OFFICE 07936 [facility] MORALES OUTPATIEN 6 6 PHYSICIAN OSITO T VISIT S GROUP 15 MINUTES OFFICE 60187 [facility] MORALES OUTPATIEN 6 6 PHYSICIAN OSITO T VISIT S GROUP 15 MINUTES HOSPITAL J[facility]IER - 6 6 [facility] INC T OFFICE 26512 [facility] OUTPATIEN 6 6 Y T VISIT 5 [facility] - 6 6 Y OUTPATIEN HOSPITAL T OFFICE 79287 [place] [facility] OUTPATIEN 6 6 MEDICAL ARMAND T VISIT SERV 15 FOUNDATIO MINUTES [facility] JAVIER - 6 6 [facility] OUTPATIEN INC T OFFICE 44273 [facility] MORALES OUTPATIEN 6 6 PHYSICIAN OSITO T VISIT S GROUP 15 MINUTES HOSPITAL JAVIER - 6 6 [facility] OUTPATIEN INC T [facility]OSPITAL J[facility]IER - 6 6 [facility] OUTPATIEN INC T OFFICE 59760 [facility] MORALES OUTPATIEN 6 6 PHYSICIAN OSITO T VISIT S GROUP 15 MINUTES OFFICE 80089 [facility] MORALES OUTPATIEN 6 6 PHYSICIAN OSITO T VISIT S GROUP 15 MINUTES OFFICE 35709 [facility] MORALES OUTPATIEN 6 6 PHYSICIAN OSITO T VISIT S GROUP 15 MINUTES OFFICE 22758 [facility] MORALES OUTPATIEN 6 6 PHYSICIAN T VISIT S GROUP 15 MINUTES OFFICE 13708 [facility] MORALES OUTPATIEN 6 6 PHYSICIAN T VISIT S GROUP 15 MINUTES OFFICE 92373 [facility] MORALES OUTPATIEN 6 6 PHYSICIAN T VISIT S GROUP 15 MINUTES HOSPITAL J[facility]IER - 6 6 [facility] OUTPATIEN INC T OFFICE 95518 [facility] MORALES OUTPATIEN 6 6 PHYSICIAN T VISIT S GROUP 15 MINUTES OFFICE 18887 [facility] MORALES OUTPATIEN 6 6 PHYSICIAN T VISIT S GROUP 25 MINUTES HOSPITAL J[facility]IER - 6 6 [facility] OUTPATIEN INC T EMERGENCY 42143 J[facility]IER 6 6 [facility] DEPARTMEN INC T VISIT LOW/MODER SEVERITY OFFICE 33806 J[facility]IER SHOSHANA OUTPATIEN 5 5 [facility] 15 MINUTES OFFICE 07961 [facility] OUTPATI[facility] 5 5 [facility] 15 MINUTES [facility]OSPITAL [facility] - 5 5 [facility] JAVIER - 5 5 MEM [facility] OUTPATIEN INC [facility] JAVIER - 5 5 [facility] OUTPATIEN INC [facility] JAVIER - 5 5 MEM [facility] OUTPATIEN INC [facility] JAVIER - 5 5 [facility] OUTPATIEN INC T OFFICE 23348 [facility] MORALES OUTPATIEN 5 5 PHYSICIAN OSITO T VISIT S GROUP 15 MINUTES OFFICE 69852 [facility] MORALES OUTPATIEN 5 5 PHYSICIAN OSITO T VISIT S GROUP 15 MINUTES OFFICE 83327 [facility] MORALES OUTPATIEN 5 5 PHYSICIAN OSITO T VISIT S GROUP 25 MINUTES OFFICE 18841 [place] [facility] OUTPATIEN 5 5 [facility] T VISIT HEALTH 15 [facility] MINUTES OFFICE 40485 [place] [facility] OUTPATIEN 5 5 [facility] T NEW 30 HEALTH MINUTES [facility] CENTRAL - 5 5 [facility] T OFFICE 74081 [facility] T VISIT HLTH DEPT TH DEPT 10 KATE KATE MINUTES OFFICE 71365 [facility] HARD[facility] TRA OUTPATIEN 4 4 HEALTH T VISIT MEDICAL 15 GROUP MINUTES OFFICE 32754 [facility] RAMIREZ OUTPATIEN 4 4 HEALTH DON T NEW 30 MEDICAL MINUTES GROUP OFFICE 34157 [facility] LEYDA OUTPATIEN 4 4 PHYSICIAN KYRA T VISIT S GROUP 15 MINUTES HOSPITAL [facility] - 3 3 [facility] JAVIER - 3 3 [facility] OUTPATIEN INC [facility] JAVIER - 3 3 [facility] OUTPATIEN INC T OFFICE 14031 [facility]PE[facility] HARPEL OUTPATIEN 3 3 ABBY ABBY T VISIT 15 MINUTES OFFICE 37481 [facility] OUTPATIEN 2 2 [facility] T NEW 20 DEPT DEPT MINUTES OFFICE 77149 AHSAN LOVEMax, OUTPATIEN 0 0 CLIN[facility] T VISIT PSC 15 MINUTES [facility]OSPITAL [facility] 0 0 [facility] T OFFICE 14095 AHSAN LOVEMax, OUTPATIEN 0 0 CLINIC MICHAEL T VISIT PSC 15 MINUTES EMERGENCY 58033 [facility] CELIA, 0 0 [facility] T VISIT LIMITED/M INOR PROB EMERGENCY 98543 [facility]G 0 0 [facility] T VISIT LOW/MODER SEVERITY OFFICE 18504 [facility], OUTPATIEN 0 0 HEALTH BO J T VISIT CLINIC OF 15 MINUTES [facility] OFFICE 60099 [facility], OUTPATIEN 9 9 HEALTH BO J T VISIT CLINIC OF 25 MINUTES [facility] OFFICE 66660 [facility], OUTPATIEN 9 9 HEALTH BO J T VISIT CLINIC OF 15 MINUTES [facility] JAVIER - 9 9 [facility] OFFICE 82662 HERBERT PISANO 9 9 ANT Quinonez T VISIT 15 MINUTES OFFICE 84103 [facility], OUTPATIEN 9 9 HEALTH BO J T VISIT CLINIC OF 15 MINUTES [facility] OFFICE 11793 [facility], OUTPATIEN 9 9 HEALTH BO J T VISIT CLINIC OF 15 MINUTES [facility] OFFICE 62690 [facility], OUTPATIEN 9 9 HEALTH BO J T VISIT CLINIC OF 15 MINUTES [facility] OFFICE 92007 [facility] OUTPATIEN [address] [facility] VISIT CLINIC OF 15 MINUT[facility] OFFICE 34927 [facility] [address] [facility] V[facility]IN[facility] OF 15 MINUTES [facility] JAVIER - 8 8 [facility] 44576 HERBERT NICHOLS 8 8 CLINIC MICHAEL T VISIT PSC 15 MINUTES OFFICE 60963 HERBERT NICHOLS 8 8 CLINIC MICHAEL T VISIT PSC 15 MINUTES OFFICE 09349 HERBERT NICHOLS 8 8 CLINIC MICHAEL T VISIT PSC 15 MINUTES
--- OUTSIDE RECORDS SUMMARY | 2017-03-06 10:21 | External Medical Summary Rpt ---
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 MIGUEL MIGUEL TRACHOMAT IS AMPLIFIED PROBE TQ IADNA 80187 BENSON BENSON NEISSERIA 3 MIGUEL MIGUEL GONORRHOE AE AMPLIFIED PROBE TQ CYTP 86248 KELLEY AGUILARNO CERVICAL/ 3 MIGUEL MIGUEL VAGINAL REQ INTERP PHYSICIAN CYTP C/V 14370 KELLEY AGUILARNO AUTO THIN 3 MIGUEL MIGUEL LYR PREPJ SCR MNL RESCR PHYS URINE 77827 [facility] WILKES 2 [facility] TEST DEPT DEPT VISUAL COLOR CMPRSN METHS THERAPEUT 08956 AHSAN LOVEN, IC 0 [facility] PROPHYLAC PSC TIC/DX INJECTION SUBQ/IM INJECTION J1885 AHSAN TAMAREN, 0 [facility] KETOROLAC PSC TROMETHAM INE PER 15 MG INJECTION J0696 AHSAN TAMAREN, 0 [facility] CEFTRIAXO PSC NE SODIUM PER 250 MG THERAPEUT 21526 AHSAN HECTORAREN, IC 0 [facility] PROPHYLAC PSC TIC/DX INJECTION SUBQ/IM INJECTION J1885 AHSAN LOVEN, 0 [facility] KETOROLAC PSC TROMETHAM INE PER 15 MG COLPOSCOP 81959 [facility], Y CERVIX 9 [facility] CERVIX CLINIC OF & ENDOCRV YOSELIN [place] [address] PATHOLOGY PATHOLOGY SURG 9 & & PATHOLOGY CYTOLOGY CYTOLOGY LAB LAB GROSS&KYRA ROSCOPIC EXAM CYTP C/V 41487 PATHOLOGY PATHOLOGY AUTO THIN 9 & & LYR CYTOLOGY CYTOLOGY PREPJ SCR LAB LAB MNL RESCR PHYS CYTP 98080 PATHOLOGY PATHOLOGY CERVICAL/ 9 & & VAGINAL CYTOLOGY CYTOLOGY REQ LAB LAB INTERP PHYSICIAN IIV3 10178 DHS/CO CHUNG VACCINE 9 [facility] CENTRAL DEPT VIRUS 0.5 BANK ACCT ML DOSAGE IM USE HOSPITAL 80960 [facility] 9 CARE DAGOBERTO T DAY ASSOCIATE MANAGEMEN S T 30 MIN/< SUBQ 23881 [facility] 9 CARE DAGOBERTO T CARE PER ASSOCIATE DAY E/M S NORMAL CIRCUMCIS 33820 [facility] 9 CARE DAGOBERTO T W/CLAMP/O ASSOCIATE TH DEV S W/BLOCK 1ST 74036 [facility], HOSP/CORY 9 CARE [facility]OBERT[facility] S CARE PER DAY NML NB VAGINAL 40189 [facility], DELIVERY 9 [facility] ONLY CLINIC OF W/POSTPAR RACHEL C[facility] [place] [facility] NEURAXIAL 62481 [facility] [place], LABOR 9 ANESTH SIL F ANALG/ANE OF THE S PLND [place] VAGINAL DELIVERY REPAIR OF 7569 JAVIER HERRERA OTHER 9 [facility] CURRENT INC INC OBSTETRIC LACERATIO N OTHER 7279 JAVIER HERRERA VACUUM 9 MEM H[facility] MEM HOSP EXTRACTIO INC INC N 18469 NAM PISANOI 9 ATN Quinonez ON STRESS TEST 60501 [facility]AL[facility], NONSTRESS 9 [facility] TEST [facility]INIC OF [facility] CUL BACT 47933 COMBINED COMBINED XCPT 9 PHYSICIAN PHYSICIAN URINE S LAB S LAB BLOOD/STO OL AEROBIC ISOL US PREG 50356 [facility], UTERUS 9 [facility] REAL TIME CLINIC OF F/U TRNSABDL [place] PER FETUS [facility] 93814 [facility], BIOPHYSIC 9 [facility] AL CLINIC OF PROFILE W/O [place] NON-STRES [facility] S TESTING DOPPLER 90614 [facility], VELOCIMET 9 [facility] RY CLINIC OF UMBILICAL ARTERY [place] [facility] CYTP 33092 [facility] [place], CERVICAL/ 8 [place] INC DAGOBERTO D VAGINAL REQ INTERP PHYSICIAN CYTP 45551 [facility] [place], CERV/VAG 8 [place] INC DAGOBERT[place] D AUTO THIN LAYER PREP MNL SCREEN BLOOD 29934 JAVIER HERRERA TYPING 8 [facility] SEROLOGIC INC INC ABO BLOOD 27622 JAVIER HERRERA COUNT 8 [facility] COMPLETE INC INC AUTO&[place] [address] [facility] AMAYA, 8 [facility] UTERUS 14 CLINIC OF WK TRANSABDL [place] [facility] GESTAT ANTIBODY 67334 JAVIER HERRERA SCREEN 8 [facility]OS[facility] RBC EACH INC INC SERUM TECHNIQUE [place] MISSED 42395 [facility] AMAYA, 8 [facility] FIRST CLINIC OF TRIMESTER SURGICAL [facility] BLOOD 96167 JAVIER HERRERA TYPING 8 [facility] SEROLOGIC INC INC RH (D) IV NFUS 70109 JAVIER HERRERA THER 8 [facility] PROPH/[place] [address] PATHOLOGY PATHOLOGY SURG 8 & & PATHOLOGY CYTOLOGY CYTOLOGY LAB LAB GROSS&KYRA ROSCOPIC EXAM ANESTHESI 14131 [facility] [place] Victor Hugo ANESTH SIL Gotti INCOMPLET OF THE E/MISSED [place] DILATION& 6902 JAVIER HERERRA CURETTAGE 8 [facility] INC [place] FOLLOWING DEL[place]/ [place] NFS 0[address]19 JAVIER HERRERA THER 8 [facility] PROPH/DX INC INC 1ST >1 HR US PREG 98197 [facility], UTERUS 8 [facility] REAL TIME CLINIC OF W/IMAGE DCMTN [facility] US PREG 17495 [facility], UTERUS 8 [facility] REAL TIME CLINIC OF W/IMAGE DCMTN [facility] MOLECULAR 22706 [facility] [place], 8 [place] D[place] Rei DIAGNOSTI CS INTERPRET ATION & REPORT MUTATION 42554 [facility] [place], ID 8 [place] Minaya ENZYMATIC LIG/PRIME R XTN 1 SGM EA MOLEC 57729 [facility] [place], SEP&ID HI 8 [place] D[place] Rei RESOLU TQ EACH NUCLEIC ACID PREP IADNA 07590 [facility] [place], CHLAMYDIA 8 [place] INC D[place] Rei TRACHOMAT IS AMPLIFIED PROBE TQ IADNA 20267 [facility] [place], NEISSERIA 8 [place] D[place] Rei GONORRHOE AE AMPLIFIED PROBE TQ CYTP 85610 [facility] [place], CERV/VAG 8 [place] DAG[place]ERT[place] Rei AUTO THIN LAYER PREP MNL SCREEN CYTP 37551 [facility] [place], CERVICAL/ 8 [place] DAG[place]ERT[place] Rei VAGINAL REQ INTERP PHYSICIAN ECG 86947 CARDIOLOG ALEMAN, ROUTINE 8 Y LEOBARDO A ECG ASSOCIATE W/LEAST S OF 12 [facility] I&R ONLY Encounters Encounter Start End Date Code Location Performer Type Date [facility] JAVIER - 7 7 [facility] OUTPATIEN INC T EMERGENCY 36920 JAVIER 7 7 [facility] INC T VISIT LOW/MODER SEVERITY OFFICE 61016 [facility] LEYDA OUTPATIEN 6 6 PHYSICIAN T VISIT S GROUP 15 MINUTES OFFICE 03871 [facility] MORALES OUTPATIEN 6 6 PHYSICIAN OSITO T VISIT S GROUP 15 MINUTES OFFICE 51495 [facility] OUTPATIEN 6 6 HEALTH HEN T VISIT MEDICAL 15 GROUP MINUTES HOSPITAL JAVIER - 6 6 [facility] INPATIENT [facility] JAVIER [facility] 6 6 [facility] OUTPATIEN [facility] T OFFICE 31309 [facility] MORALES OUTPATIEN 6 6 PHYSICIAN OSITO T VISIT S GROUP 15 MINUTES OFFICE 42354 [facility] HARPEL OUTPATIEN 6 6 PHYSICIAN ABBY T VISIT S GROUP 25 MINUTES OFFICE 47601 [facility] MORALES OUTPATIEN 6 6 PHYSICIAN OSITO T VISIT S GROUP 15 MINUTES OFFICE 22691 [facility] MORALES OUTPATIEN 6 6 PHYSICIAN OSITO T VISIT S GROUP 15 MINUTES OFFICE 78050 [facility] MORALES OUTPATIEN 6 6 PHYSICIAN OSITO T VISIT S GROUP 15 MINUTES HOSPITAL JAVIER - 6 6 [facility] OUTPATIEN INC T OFFICE 89607 [facility] 6 6 Y T VISIT 5 H[facility]PITAL [facility] UN[facility]ERSIT - 6 6 Y OUTPATIEN HOSPITAL T OFFICE 97525 [place] [facility] OUT[facility] 6 6 MEDICAL ARMAND T VISIT SERV 15 FOUNDATIO MINUTES [facility] JAVIER - 6 6 [facility] OUTPATIEN INC T OFFICE 07601 [facility] MORALES OUTPATIEN 6 6 PHYSICIAN OSITO T VISIT S GROUP 15 MINUTES HOSPITAL JAVIER - 6 6 [facility] OUTPATIEN INC T HOSPITAL JAVIER - 6 6 [facility] OUTPATIEN INC T OFFICE 49028 [facility] MORALES OUTPATIEN 6 6 PHYSICIAN OSITO T VISIT S GROUP 15 MINUTES OFFICE 54405 [facility] MORALES OUTPATIEN 6 6 PHYSICIAN OSITO T VISIT S GROUP 15 MINUTES OFFICE 49804 [facility] MORALES OUTPATIEN 6 6 PHYSICIAN OSITO T VISIT S GROUP 15 MINUTES OFFICE 88274 [facility] MORALES OUTPATIEN 6 6 PHYSICIAN T VISIT S GROUP 15 MINUTES OFFICE 66582 [facility] MORALES OUTPATIEN 6 6 PHYSICIAN T VISIT S GROUP 15 MINUTES OFFICE 18205 [facility] MORALES OUTPATIEN 6 6 PHYSICIAN T VISIT S GROUP 15 MINUTES HOSPITAL JAVIER - 6 6 [facility] OUTPATIEN INC T OFFICE 12560 [facility] MORALES OUTPATIEN 6 6 PHYSICIAN T VISIT S GROUP 15 MINUTES OFFICE 71569 [facility] MORALES OUTPATIEN 6 6 PHYSICIAN T VISIT S GROUP 25 MINUTES HOSPITAL JAVIER - 6 6 [facility] OUTPATIEN INC T EMERGENCY 09875 JAVIER 6 6 [facility] DEPARTMEN INC T VISIT LOW/MODER SEVERITY OFFICE 15545 JAVIER SHOSHANA OUTPATIEN 5 5 [facility] 15 MINUTES OFFICE 62043 [facility] 5 5 [facility] 15 MINUTES HOSPITAL [facility] - [address] [facility] JAVIER - 5 5 [facility] OUTPATIEN INC HOSPITAL JAVIER - 5 5 [facility] OUTPATIEN INC [facility] JAVIER - 5 5 [facility] OUTPATIEN INC [facility] JAVIER - 5 5 [facility] OUTPATIEN INC T OFFICE 18602 [facility] MORALES OUTPATIEN 5 5 PHYSICIAN OSITO T VISIT S GROUP 15 MINUTES OFFICE 37538 [facility] MORALES OUTPATIEN 5 5 PHYSICIAN OSITO T VISIT S GROUP 15 MINUTES OFFICE 22672 [facility] MORALES OUTPATIEN 5 5 PHYSICIAN OSITO T VISIT S GROUP 25 MINUTES OFFICE 45974 [facility] [facility] OUTPATIEN 5 5 [facility] T VISIT HEALTH [address] [facility] MINUTES OFFICE 25616 [place] [facility] OUTPATIEN 5 5 [facility] T NEW 30 HEALTH MINUTES [facility] CENTRAL - 5 5 SCIENTOLOGIST OUTPATIEN HOSP T OFFICE 71270 [facility] T VISIT HLTH DEPT TH DEPT 10 KATE KATE MINUTES OFFICE 85696 [facility] H[facility] TRA OUTPATIEN 4 4 HEALTH T VISIT MEDICAL 15 GROUP MINUTES OFFICE 66079 SCIENTOLOGIST RAMIREZ OUTPATIEN 4 4 HEALTH DON T NEW 30 MEDICAL MINUTES GROUP OFFICE 34201 [facility] LEYDA OUTPATIEN 4 4 PHYSICIAN KYRA T VISIT S GROUP 15 MINUTES HOSPITAL SCIENTOLOGIST - 3 3 [facility] JAVIER - 3 3 [facility] OUTPATIEN INC [facility] JAVIER - 3 3 [facility] OUTPATIEN INC T OFFICE 46445 [facility] HARPEL OUTPATIEN 3 3 ABBY ABBY T VISIT 15 MINUTES OFFICE 77127 [facility] W[facility] OUTPATIEN 2 2 [facility] T NEW 20 DEPT DEPT MINUTES OFFICE 27890 AHSAN LOVEMax, OUTPATIEN 0 0 [facility]IN[facility] T VISIT PSC 15 MINUTES HOSPITAL CHUNG - 0 0 [facility] T OFFICE 66406 AHSAN LOVEMax, OUTPATIEN 0 0 CLINIC [facility] T VISIT PSC 15 MINUTES EMERGENCY 44209 [facility] CELIA, 0 0 [facility] T VISIT LIMITED/M INOR PROB EMERGENCY 19400 CHUNG 0 0 [facility] T VISIT LOW/MODER SEVERITY OFFICE 45933 [facility], OUTPATIEN 0 0 HEALTH BO J T VISIT CLINIC OF 15 MINUTES [facility] OFFICE 14180 [facility], OUTPATIEN 9 9 HEALTH BO J T VISIT CLINIC OF 25 MINUTES [facility] OFFICE 74698 [facility], OUTPATIEN 9 9 HEALTH BO J T VISIT CLINIC OF 15 MINUTES [facility] JAVIER - 9 9 [facility] INPATIENT [facility] OFFICE 52411 HERBERT PISANO 9 9 ANT Quinonez T VISIT 15 MINUTES OFFICE 99861 [facility], OUTPATIEN 9 9 HEALTH BO J T VISIT CLINIC OF 15 MINUTES [facility] OFFICE 10926 [facility], OUTPATIEN 9 9 HEALTH BO J T VISIT CLINIC OF 15 MINUTES [facility] OFFICE 89221 [facility], OUTPATIEN 9 9 HEALTH BO J T VISIT CLINIC OF 15 MINUTES [facility] OFFICE 23129 [facility] OUTPATIEN 8 8 [facility] VISIT CLINIC OF 15 MINUTES [facility] OFFICE 03514 [facility] 8 [facility] VISIT CLINIC OF 15 MINUTES [facility] JAVIER - 8 8 [facility] 59104 HERBERT NICHOLS 8 8 CLINIC MICHAEL T VISIT PSC 15 MINUTES OFFICE 31482 HERBERT NICHOLS 8 8 CLINIC [facility]EL T VISIT PSC 15 MINUTES OFFICE 78705 HERBERT NICHOLS 8 8 CLINIC MICHAEL T VISIT PSC 15 MINUTES
--- OUTSIDE RECORDS SUMMARY | 2017-03-06 10:22 | External Medical Summary Rpt ---
Author Author MARLY Ahuaj, MARLY Ahuja Organization [employer] Address Unknown Phone Unavailable
--- OUTSIDE RECORDS SUMMARY | 2017-03-06 10:22 | External Medical Summary Rpt ---
Author Author , ZENOBIA LUKE Address Unknown Phone [email or web address] Immunization Name Date Rout CVX Reac Dose Comm Prov Is Faci e tion ent ider Refu lity Give sed n Tdap 06-2 115 0.5 Hist [facility] No [facility] , 6-20 mL oric 1 1 Adso 15 al rbed Info rmat ion - Sour ce Unsp ecif ied Tdap 04-0 115 999 Hist H191 No H191 , 6-20 oric Adso 06 al rbed Info rmat ion - Sour ce Unsp ecif ied
--- OUTSIDE RECORDS SUMMARY | 2017-03-06 10:22 | External Medical Summary Rpt ---
Author Author MARLY Ahuja, MARLY Ahuja Organization [employer] Address Unknown Phone Unavailable
--- OUTSIDE RECORDS SUMMARY | 2017-03-06 10:22 | External Medical Summary Rpt ---
Author Author , ZENOBIA LUKE Address Unknown Phone [email or web address] things you [employer] Immunization Name Date Rout CVX Reac Dose [...]
[2017-03-06] MEDS ORDERED: BACTRIM DS 8001 TA1 PO (10:47)
--- NOTE | 2017-03-06 10:48 | Urgent Treatment Center Report ---
History of Present Issue Date/Time Seen by Provider 03/06/17 1052 Visit Reason Pt arrived:Walked Presenting Problem:PT STATES HAVING BABY ONE YEAR AGO AND HAVING MIRENA PLACED. STATES LOWER ABDOMINAL PAIN THAT BEGAN AFTER MIRENA WAS PLACED AND CONTINUES TO GET WORSE Location if Accident: Onset of symptoms date/time:/ or onset unknown for:MEDICAL HX UNKNOWN Have you (or family members/close friends) recently traveled outside the [place]? N If Yes, where/when: Have you had exposure to infectious disease within the past month? TB? Other? Specify: Patient state that she has a baby around a year ago and had a Mirena placed, States that ever since she has pains on and off in her lower abdominal area around her ovaries State that pain has continued to get worse and she is worried that her mirena is causing the problems ALLERGIES Coded Allergies: No Known Allergies (08/09/15) History Medical History General CAD? No Angina: No LA: No Hypertension? No Hyperlipidemia? No CHF? No DVT? No PE? No COPD? No Asthma? No Anemia? No GERD? No Gastric ulcers? No GI Bleed? No Hernia? No Thyroid Problems? No Hypothyroidism? No CVA? No Seizures? No Diabetes? No Renal Insuffiency? No UTI? No Stones? No GB Disease: No Nephritic Syndrome? No Asplenia? No Hepatitis? No Sickle Cell Disease? No Arthritis? No Migraines? No Cataracts? No Glaucoma? No MRSA? No HIV? No TB? No Anxiety? Yes Depression? Yes Cancer? No Immunization HX DT/Tetanus Unknown Flu Refused Pneumonia Refuses Surgical Hx Previous Surgery?Y D & C Family History Family HX Diabetes Yes CAD Yes Hypertension Yes Hyperlipidemia Yes Cancer Yes TB No Social History Smoking Hx Smoker: Current Every Day Smoker Tobacco: Yes Type Cigarettes Packs/day < 1 Pack Alcohol Alcohol: No Review of Systems All Other Systems Reviewed and Negative Gastrointestinal abdominal pain Physical Exam Vital Signs Vital Signs Date Time Temp Pulse Resp B/P Pulse O2 O2 Flow FiO2 Ox Delivery Rate 03/06 1026 97.9 74 18 120/69 99 General Appearance normal appearance, WD/WN, no apparent distress Respiratory Status Yes: trachea midline, chest symmetrical, non tender chest. No: respiratory distress. 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 No Results/Orders Laboratory Tests 03/06/17 1043: Urine Color YELLOW, Urine Appearance Clear, Urine pH 6.5, Ur Specific [place] 1.010, Urine Protein NEGATIVE, Urine Ketones NEGATIVE, Urine Blood TRACE H, Urine Nitrate NEGATIVE, Urine Bilirubin NEGATIVE, Urine Urobilinogen 0.2, Ur Leukocyte Esterase TRACE H, Urine Glucose NEGATIVE, Urine Test NEGATIVE Orders Procedure Date/time Status [facility] URINE 03/06 1043 Complete UTC URINE DIPSTICK 03/06 1043 Complete Progress [facility] Progress Notes Date 03/06/17 Time 1055 Comment Patient did not want transfered to ER for evaluation so Called Dr Das office and spoke with staff, advised they would work patient in today for evaluation and further treatment advise to perform UA and Urine pregnacy in [facility] completed and see results in lab testing and treated according patient verbalized understanding and agreed to see Cassandra Jacome today at 330 Departure Departure Time of Disposition 1046 Disposition DC Home or Self Care(routine) Clinical Impression Primary Impression: UTI (urinary tract infection) Qualifiers: Urinary tract infection type: site unspecified Hematuria presence: with hematuria Qualified Code: N39.0 - Urinary tract infection, site not specified Condition STABLE Referrals Ayaz CUMMINGS,Abiel Esqueda.: Today after leaving ER Patient Instructions DI for Urinary Tract Infection (UTI), Urinary Tract Infection Additional Instructions Drink plenty of water FOllow up with Dr Jacome today at 330 as advised in the [facility] today Return if needed Discharge Counseling Counseled pt/family regarding diagnosis, test results, medications/RX, home care, follow up needs Prescriptions Current Visit Scripts SULFAMETHOXAZOLE W/TRIMETHOPRI (Bactrim Ds Tab) 1 TABLET PO BID #20 TAB at 1050
--- NOTE | 2017-03-06 10:48 | [facility]gent Treatment Center Report ---
History of Present Issue Date/Time Seen by Provider 03/06/17 1052 Visit Reason Pt arrived:Walked Presenting Problem:PT STATES HAVING BABY ONE YEAR AGO AND HAVING MIRENA PLACED. STATES LOWER ABDOMINAL PAIN THAT BEGAN AFTER MIRENA WAS PLACED AND CONTINUES TO GET WORSE Location if Accident: Onset of symptoms date/time:/ or onset unknown for:MEDICAL HX UNKNOWN Have you (or family members/close friends) recently traveled outside the [place]? N If Yes, where/when: Have you had exposure to infectious disease within the past month? TB? Other? Specify: Patient state that she has a baby around a year ago and had a Mirena placed, States that ever since she has pains on and off in her lower abdominal area around her ovaries State that pain has continued to get worse and she is worried that her mirena is causing the problems ALLERGIES Coded Allergies: No Known Allergies (08/09/15) History Medical History General CAD? No Angina: No DE: No Hypertension? No Hyperlipidemia? No CHF? No DVT? No PE? No COPD? No Asthma? No Anemia? No GERD? No Gastric ulcers? No GI Bleed? No Hernia? No Thyroid Problems? No Hypothyroidism? No CVA? No Seizures? No Diabetes? No Renal Insuffiency? No UTI? No Stones? No GB Disease: No Nephritic Syndrome? No Asplenia? No Hepatitis? No Sickle Cell Disease? No Arthritis? No Migraines? No Cataracts? No Glaucoma? No MRSA? No HIV? No TB? No Anxiety? Yes Depression? Yes Cancer? No Immunization HX DT/Tetanus Unknown Flu Refused Pneumonia Refuses Surgical Hx Previous Surgery?Y D & C Family History Family HX Diabetes Yes CAD Yes Hypertension Yes Hyperlipidemia Yes Cancer Yes TB No Social History Smoking Hx Smoker: Current Every Day Smoker Tobacco: Yes Type Cigarettes Packs/day < 1 Pack Alcohol Alcohol: No Review of Systems All Other Systems Reviewed and Negative Gastrointestinal abdominal pain Physical Exam Vital Signs Vital Signs Date Time Temp Pulse Resp B/P Pulse O2 O2 Flow FiO2 Ox Delivery Rate 03/06 1026 97.9 74 18 120/69 99 General Appearance normal appearance, WD/WN, no apparent distress Respiratory Status Yes: trachea midline, chest symmetrical, non tender chest. No: respiratory distress. Cardiovascular normal exam, regular rate/rhythm, no peripheral edema, no gallop Gastrointestinal normal bowel sounds, normal exam, no guarding, no rebound, Pain in lower abdominal area that radiates into groin and leg, had mirena placed one year ago and states that pain has continued to get worse Has appointment with Dr Jacome next week but couldn't wait had to leave work today in pain Neurologic alert, presser hand II-XII nml as tested, normal exam, no motor/sensory deficits, oriented x 3 Comments Denies fever, denies nausea or vomiting States that pain in lower abdomen comes and goes and has continued to get worse over the last year Medical Decision Making LABS/Meds/Orders Pt receiving controlled substance in ED? No Results/Orders Laboratory Tests 03/06/17 1043: Urine Color YELLOW, Urine Appearance Clear, Urine pH 6.5, Ur Specific [place] 1.010, Urine Protein NEGATIVE, Urine Ketones NEGATIVE, Urine Blood TRACE H, Urine Nitrate NEGATIVE, Urine Bilirubin NEGATIVE, Urine Urobilinogen 0.2, Ur Leukocyte Esterase TRACE H, Urine Glucose NEGATIVE, Urine Test NEGATIVE Orders Procedure Date/time Status [facility] URINE 03/06 1043 Complete UTC URINE DIPSTICK 03/06 1043 Complete Progress R[facility] Progress Notes Date 03/06/17 Time 1055 Comment Patient did not want transfered to ER for evaluation so Called Dr Das office and spoke with staff, advised they would work patient in today for evaluation and further treatment advise to perform UA and Urine pregnacy in [facility] completed and see results in lab testing and treated according patient verbalized understanding and agreed to see Cassandra Jacome today at 330 Departure Departure Time of Disposition 1046 Disposition DC Home or Self Care(routine) Clinical Impression Primary Impression: UTI (urinary tract infection) Qualifiers: Urinary tract infection type: site unspecified Hematuria presence: with hematuria Qualified Code: N39.0 - Urinary tract infection, site not specified Condition STABLE Referrals Ayaz UCMMINGS,Abiel Esqueda.: Today after leaving ER Patient Instructions DI for Urinary Tract Infection (UTI), Urinary Tract Infection Additional Instructions Drink plenty of water FOllow up with Dr Jacome today at 330 as advised in the RUST today Return if needed Discharge Counseling Counseled pt/family regarding diagnosis, test results, medications/RX, home care, follow up needs Prescriptions Current Visit Scripts SULFAMETHOXAZOLE W/TRIMETHOPRI (Bactrim Ds Tab) 1 TABLET PO BID #20 TAB at 1056
[2017-03-06 10:50] LABS: URINE BILIRUBIN - DIPSTICK NEGATIVE (NEG); URINE BLOOD TRACE (NEG); UTC URINE PREGNANCY NEGATIVE (NEG)
[2017-03-06 10:55] VITALS: BP 120/69
== END 2017-03-06 10:56 | disposition home or self-care (01) ==
LOC: UTC 10:03
PROVIDERS: Nurse Practitioner
DX: N39.0 Urinary tract infection, site not specified (principal); Z72.0 Tobacco use

== ENCOUNTER 2017-05-27 14:34 | Emergency (ER) | payer MEDICAID ==
[~2017-05-27] VITALS: Ht 157.5 cm; Wt 56.7 kg
[~2017-05-27 14:34] MED LIST changes: +BACTRIM DS 8001 TA1 PO
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
--- OUTSIDE RECORDS SUMMARY | 2017-05-27 15:00 | External Medical Summary Rpt | CCD ---
Author Author , ZENOBIA LUKE Address Unknown Phone [email or web address] Immunization Name Date Rout CVX Reac Dose [...]
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
--- OUTSIDE RECORDS SUMMARY | 2017-05-27 15:00 | External Medical Summary Rpt | CCD ---
Author Author , ZENOBIA LUKE Address Unknown Phone [email or web address] Immunization Name Date Rout CVX Reac Dose [...]
[2017-05-27] MEDS ORDERED: KEFLEX 500MG.500 MG PO (16:13)
[2017-05-27] MEDS ORDERED: HYDROCODONE-APA1 TA1 PO (16:13)
--- NOTE | 2017-05-27 16:13 | Emergency Room Report ---
History of Present Illness Time Seen by MD Lazaro Presenting Problem in Triage Pt arrived:Walked Presenting Problem:3rd digit left hand, laceration revealing tendon Onset of symptoms date/time:/ or onset unknown for:MEDICAL HX UNKNOWN Treatment Prior to Arrival: [employer] Provided by: Sepsis Risk Assessment: Temp: 98.3 B/P: 113/52 MAP: 72 Pulse: 102 Resp: 18 Recent fever? N Clinical Suspician of Infection? N Mental Status: 1 - Regular (Normal Baseline) Sepsis Risk:Low Sepsis Risk Have you (or family members/close friends) recently traveled outside the [place]? N If Yes, where/when: Have you had exposure to infectious disease within the past month? TB? Other? Specify: 26 years old white female who claims that she was raising the kitchen window when the glass came down on her LEFT middle finger with a laceration over the skin and tendon. She is unable to do flexion of that finger and the fourth and she has no pin prick sensations. Source patient, RN notes reviewed Exam Limitations no limitations ALLERGIES Coded Allergies: No Known Allergies (05/27/17) Home Medications Active Scripts SULFAMETHOXAZOLE W/TRIMETHOPRI (Bactrim Ds Tab) 1 TABLET PO BID #20 TAB Prov: 03/06/17 History Medical History General CAD? No Angina: No [place]: No Hypertension? No Hyperlipidemia? No CHF? No DVT? No PE? No COPD? No Asthma? No Anemia? No GERD? No Gastric ulcers? No GI Bleed? No Hernia? No Thyroid Problems? No Hypothyroidism? No CVA? No Seizures? No Diabetes? No Renal Insuffiency? No End Stage Renal Disease? No UTI? No Stones? No GB Disease: No Nephritic Syndrome? No Asplenia? No Hepatitis? No Sickle Cell Disease? No Arthritis? No Migraines? No Cataracts? No Glaucoma? No MRSA? No HIV? No TB? No Anxiety? Yes Depression? Yes Cancer? 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 Respiratory no symptoms reported Cardiovascular no symptoms reported Gastrointestinal no symptoms reported Genitourinary no symptoms reported. Musculoskeletal see HPI (tendon laceration) Skin see HPI (skin laceration) Psychiatric/Neurological numbness (distal LEFT third digit) Physical Exam Vital Signs Vital Signs Date Time Temp Pulse Resp B/P Pulse O2 O2 Flow FiO2 Ox Delivery Rate 05/27 1440 98.3 102 18 113/52 99 - WBC >12,000 or <4,000 or 10% bands? 2 or more SIRS Criteria Met? B/P:113/52 MAP:72 Creatinine >2.0? UA output<0.5ml/kg/hr for 2 hrs? Platelet count >100,000? Lactate >2.0mmol/1? INR >1.2 or PTT > than 60 sec? Evidence of Organ Dysfunction? Provider documented clinical suspician of infection? N Sepsis Criteria Count: 1 Sepsis Risk: Low Sepsis Risk General Appearance normal appearance, WD/WN Eye Exam - bilateral eye normal exam, bilateral eye PERRL, bilateral eye EOMI Ear, Nose, Throat hearing grossly normal, normal ENT inspection Neck normal inspection, non-tender, supple, full range of motion Respiratory Status Yes: trachea midline, chest symmetrical, non tender chest. No: respiratory distress. Lung Sounds bilateral: normal breath sounds, lungs clear. Cardiovascular normal exam, regular rate/rhythm, no peripheral edema, no gallop, no JVD, no murmur, no rub, normal peripheral pulses Peripheral Pulses Pulses normal Yes Gastrointestinal normal bowel sounds, normal exam, non tender, soft, no organomegaly Extremities the patient was unable to do flexion of the terminal phalanx G's of the LEFT third digit, absent pinprick sensation to the distal digit, Refill is one second. 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 Medical Decision Making LABS/Meds/Orders Pt receiving controlled substance in ED? No Results/Orders Current Medication Orders Sig/Alice Start time Last Medication Dose Route Stop Time Status Admin Diphtheria/Pertussis/ 0 .STK-MED ONE 05/27 1444 DC Tetanus Vacc IM Lidocaine HCl 0 .STK-MED ONE 11/05 1443 DC .ROUTE Orders Procedure Date/time Status HAND-RT 3 VIEWS 05/27 5735 Active XRAY/CT/US XRAY/CT/US XRAY finger(s) XR interpretation by reviewed by me Xray Results no fracture seen, no radiopaque foreign body Procedures Laceration/Wound Repair Laceration/Wound Repair Risks/benefits discussed with pt/guardian? Yes Tetanus status not up to date Wound Location finger(s) Wound Length (cm) 2 Wound's Depth, Shape superficial, into muscle, sucutaneous tissue, linear, tendon/jt involved Wound Explored no FB identified Risk of retained FB explained to pt/guardian? Yes Wound Prep Hibiclens Anesthesia 2% Lidocaine Volume Anesthetic (ccs) 4 Wound Debrided none Wound Repaired With sutures Suture Size/Type 4:0 Layer Closure No Deep Layer Suture Size/Type 4:0, Ethilon Total Number Sutures 3 Sterile Dressing Applied Yes Splint Applied Yes Type of Splint Applied Examination under local anesthesia revealed laceration of the flexor tendon of the third digit. of [facility] recommended skin closure and to be seen at 8 am in the plastic clinic tomorrow. Sling Applied Yes Departure Departure Time of Disposition 1610 Disposition DC Home or Self Care(routine) Clinical Impression Primary Impression: Finger laceration involving tendon Condition STABLE Referrals ANAHY CAMPOS Additional Instructions The patient was advised for rest and elevation. finger splint and katheryn tape start abx see dr campos in 8 AM 740 [facility], Discharge Counseling Counseled pt/family regarding diagnosis, test results, medications/RX, home care, follow up needs Prescriptions Current Visit Scripts CEPHALEXIN (Keflex 500MG Capsule) 500 MG PO Q8 #30 CAP HYDROCODONE 5MG/APAP 325MG (Hydrocodon-Acetaminophen 5-325) 1 TAB PO Q8HP PRN pain #3 TAB ED Critical Care Critical Care No If Critical Care minutes are documented, the time involved in the performance of seperately reportable procedures was not counted toward critical care time documented. I directly delivered medical care to this critically ill and/or injured patient. Timely evaluation and treatment was necessary to address the significant organ system(s) dysfunction present in this patient. at 0313
--- NOTE | 2017-05-27 16:13 | Emergency Room Report ---
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 N Clinical Suspician of Infection? N Mental Status: 1 - Regular (Normal Baseline) Sepsis Risk:Low Sepsis Risk Have you (or family members/close friends) recently traveled outside the [place]? N If Yes, where/when: Have you had exposure to infectious disease within the past month? TB? Other? Specify: 26 years old white female who claims that she was raising the kitchen window when the glass came down on her LEFT middle finger with a laceration over the skin and tendon. She is unable to do flexion of that finger and the fourth and she has no pin prick sensations. Source patient, RN notes reviewed Exam Limitations no limitations ALLERGIES Coded Allergies: No Known Allergies (05/27/17) Home Medications Active Scripts SULFAMETHOXAZOLE W/TRIMETHOPRI (Bactrim Ds Tab) 1 TABLET PO BID #20 TAB Prov: 03/06/17 History Medical History General CAD? No Angina: No [place]: No Hypertension? No Hyperlipidemia? No CHF? No DVT? No PE? No COPD? No Asthma? No Anemia? No GERD? No Gastric ulcers? No GI Bleed? No Hernia? No Thyroid Problems? No Hypothyroidism? No CVA? No Seizures? No Diabetes? No Renal Insuffiency? No End Stage Renal Disease? No UTI? No Stones? No GB Disease: No Nephritic Syndrome? No Asplenia? No Hepatitis? No Sickle Cell Disease? No Arthritis? No Migraines? No Cataracts? No Glaucoma? No MRSA? No HIV? No TB? No Anxiety? Yes Depression? Yes Cancer? 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 Respiratory no symptoms reported Cardiovascular no symptoms reported Gastrointestinal no symptoms reported Genitourinary no symptoms reported. Musculoskeletal see HPI (tendon laceration) Skin see HPI (skin laceration) Psychiatric/Neurological numbness (distal LEFT third digit) Physical Exam Vital Signs Vital Signs Date Time Temp Pulse Resp B/P Pulse O2 O2 Flow FiO2 Ox Delivery Rate 05/27 1440 98.3 102 18 113/52 99 - WBC >12,000 or <4,000 or 10% bands? 2 or more SIRS Criteria Met? B/P:113/52 MAP:72 Creatinine >2.0? UA output<0.5ml/kg/hr for 2 hrs? Platelet count >100,000? Lactate >2.0mmol/1? INR >1.2 or PTT > than 60 sec? Evidence of Organ Dysfunction? Provider documented clinical suspician of infection? N Sepsis Criteria Count: 1 Sepsis Risk: Low Sepsis Risk General Appearance normal appearance, WD/WN Eye Exam - bilateral eye normal exam, bilateral eye PERRL, bilateral eye EOMI Ear, Nose, Throat hearing grossly normal, normal ENT inspection Neck normal inspection, non-tender, supple, full range of motion Respiratory Status Yes: trachea midline, chest symmetrical, non tender chest. No: respiratory distress. Lung Sounds bilateral: normal breath sounds, lungs clear. Cardiovascular normal exam, regular rate/rhythm, no peripheral edema, no gallop, no JVD, no murmur, no rub, normal peripheral pulses Peripheral Pulses Pulses normal Yes Gastrointestinal normal bowel sounds, normal exam, non tender, soft, no organomegaly Extremities the patient was unable to do flexion of the terminal phalanx G's of the LEFT third digit, absent pinprick sensation to the distal digit, Refill is one second. Neurologic alert, incident coordinator II-XII nml as tested, normal exam, oriented x 3, absent pinprick sensation to the distal LEFT third digit and inability to do flexion of that digit Reflexes Reflexes normal Yes Skin 2 cm V-shaped laceration THE mid phalanges of the left third digit. Medical Decision Making LABS/Meds/Orders Pt receiving controlled substance in ED? No Results/Orders Current Medication Orders Sig/Alice Start time Last Medication Dose Route Stop Time Status Admin Diphtheria/Pertussis/ 0 .STK-MED ONE 05/27 1444 DC Tetanus Vacc IM Lidocaine HCl 0 .STK-MED ONE 11/05 1443 DC .ROUTE Orders Procedure Date/time Status HAND-RT 3 VIEWS 05/27 9195 Active XRAY/CT/US XRAY/CT/US XRAY finger(s) XR interpretation by reviewed by me Xray Results no fracture seen, no radiopaque foreign body Procedures Laceration/Wound Repair Laceration/Wound Repair Risks/benefits discussed with pt/guardian? Yes Tetanus status not up to date Wound Location finger(s) Wound Length (cm) 2 Wound's Depth, Shape superficial, into muscle, sucutaneous tissue, linear, tendon/jt involved Wound Explored no FB identified Risk of retained FB explained to pt/guardian? Yes Wound Prep Hibiclens Anesthesia 2% Lidocaine Volume Anesthetic (ccs) 4 Wound Debrided none Wound Repaired With sutures Suture Size/Type 4:0 Layer Closure No Deep Layer Suture Size/Type 4:0, Ethilon Total Number Sutures 3 Sterile Dressing Applied Yes Splint Applied Yes Type of Splint Applied Examination under local anesthesia revealed laceration of the flexor tendon of the third digit. of [facility] recommended skin closure and to be seen at 8 am in the plastic clinic tomorrow. Sling Applied Yes Departure Departure Time of Disposition 1610 Disposition DC Home or Self Care(routine) Clinical Impression Primary Impression: Finger laceration involving tendon Condition STABLE Referrals ANAHY CAMPOS Additional Instructions The patient was advised for rest and elevation. finger splint and katheryn tape start abx see dr campos in 8 AM 740 [facility], Discharge Counseling Counseled pt/family regarding diagnosis, test results, medications/RX, home care, follow up needs Prescriptions Current Visit Scripts CEPHALEXIN (Keflex 500MG Capsule) 500 MG PO Q8 #30 CAP HYDROCODONE 5MG/APAP 325MG (Hydrocodon-Acetaminophen 5-325) 1 TAB PO Q8HP PRN pain #3 TAB ED Critical Care Critical Care No If Critical Care minutes are documented, the time involved in the performance of seperately reportable procedures was not counted toward critical care time documented. I directly delivered medical care to this critically ill and/or injured patient. Timely evaluation and treatment was necessary to address the significant organ system(s) dysfunction present in this patient. at 0947
[2017-05-27 16:18] VITALS: BP 113/52
--- NOTE | 2017-05-27 17:30 | RADIOLOGY REPORT PS360 ---
HAND-RT 3 VIEWS HISTORY: LACERATION TO 3RD DIGIT injury to the right long finger while closing a window. Laceration to third and second finger. Severe pain. Patient Age: 26 years: Female Ordering Physician: Tesha Harper MD TECHNIQUE: 3 view right hand COMPARISON : FINDINGS No fracture evident. Osseous structures intact. Distal tuft at second and third finger intact. Joint spaces well-maintained. Phalanges intact. There is a soft tissue dressing surrounding the fingers but it does not significantly The study. Patient had some difficulty extending fingers due to pain but lateral view obtained is satisfactory. Again no fractures nor corner fractures evident. Metacarpals intact. Carpals unremarkable. IMPRESSION: Left hand intact with no fracture nor dislocation.
== END 2017-05-27 16:26 | disposition home or self-care (01) ==
LOC: ER 14:34
PROC: 0HQGXZZ Repair Left Hand Skin, External Approach (ICD-10-PCS; principal; 2017-05-27)
PROC: 2W3KX1Z Immobilization of Left Finger using Splint (ICD-10-PCS; principal; 2017-05-27)
DX: S61.213A Laceration without foreign body of left middle finger without damage to nail, initial encounter (principal); W25.XXXA Contact with sharp glass, initial encounter; Y92.019 Unspecified place in single-family (private) house as the place of occurrence of the external cause; F17.210 Nicotine dependence, cigarettes, uncomplicated; F41.8 Other specified anxiety disorders; S66.52 Laceration of intrinsic muscle, fascia and tendon of other and unspecified finger at wrist and hand level